=== PATIENT | female | born 1980 | race Caucasian/White ===

== ENCOUNTER 2018-03-17 20:00 | Emergency (ER) | payer BC, OTHER ==
[~2018-03-17] VITALS: Ht 157.5 cm; Wt 77.1 kg
[~2018-03-17 20:00] MED LIST: ALPR1TAB2 PO; CLON0.5T PO; DEXT30TA2 PO; LAMO25TA5 PO; OXCA150T3 PO; VENL37.5 PO
[2018-03-17 20:22] VITALS: BP 133/74
[2018-03-17] MEDS ORDERED: HYDROcodone/APAP 5/325MG 1 TAB TABLET ONE (20:28)
[2018-03-17] MEDS: HYDROcodone/APAP 5/325MG 1 TAB TABLET PO ONE (20:31)
[2018-03-17] MEDS ORDERED: HYDR-971 PO (20:57)
--- NOTE | 2018-03-17 21:19 | PHYS DOC ---
Past Medical History Past Medical History: Anxiety, Depression, Kidney Stone Additional Past Medical Histor: chronic back pain & frequent hx of patricia-rectal abscesses Past Surgical History: , Hysterectomy, Other Additional Past Surgical Histo: Perirectal abscess, L)salivary gland Alcohol Use: None Drug Use: None Adult General Chief Complaint Chief Complaint: WRIST PAIN HPI HPI Patient is a 37 year old female who presents with left wrist injury. The patient was walking HER-2 large dogs when she somehow lost control and was told into a fence. She primarily complains of left wrist pain which is where the dog' s leash was attached. She did not sustain any additional injuries. Incidentally , the patient is currently being followed for a 4 mm kidney stone and she does have hydrocodone at home for control of that problem. I, she is concerned only about her left wrist and wants to make sure there is no fracture. Review of Systems Review of Systems Constitutional: Denies fever or chills HENT: Denies nasal congestion Cardiovascular: No additional information not addressed in HPI Musculoskeletal: Denies back pain Integument: Denies rash or skin lesions All other systems were reviewed and found to be within normal limits, except as documented in this note. Current Medications Current Medications Current Medications Medications (Trade) Dose Ordered Sig/Chrystal Start Time Stop Time Status Last Admin Dose Admin Acetaminophen/ Hydrocodone Bitart (Lortab 5/325) 1 tab STK-MED ONCE 03/17/18 20:28 03/17/18 20:29 DC Allergies Allergies Allergies Coded Allergies Type Severity Reaction Last Updated Verified Penicillins Allergy Intermediate 05/12/13 Yes Iodinated Contrast Media - IV Dye Allergy Mild ITCHING 12/09/14 Yes Physical Exam Physical Exam Constitutional: Well developed, well nourished, no acute distress HENT: Normocephalic, atraumatic Neck: Normal range of motion Cardiovascular:Heart rate regular rhythm, no murmur Lungs & Thorax: Bilateral breath sounds clear to auscultation Skin: Warm, dry Back: No tenderness Extremities: minor ecchymosis and abrasion over the ulnar aspect of the left forearm. 2+ pulses distally, sensation to light touch intact over all dermatomes Neurologic: Alert and oriented X 3 Current Patient Data Vital Signs Vital Signs Date Time Temp Pulse Resp B/P (MAP) Pulse Ox O2 Delivery O2 Flow Rate FiO2 03/17/18 20:22 98.3 80 18 133/74 (93) 96 Room Air 98.3 EKG EKG [] Radiology/Procedures Radiology/Procedures No acute fx seen on left wrist xray Course & Med Decision Making Course & Med Decision Making Pertinent Labs and Imaging studies reviewed. (See chart for details) Patient is evaluated in the emergency department for left wrist injury. She did have some minor abrasions. She reports that her tetanus immunization was within the last 5 years. The x-ray did not reveal acute findings. She is placed in a splint for comfort. As mentioned above, the patient is followed for a kidney stone. She has 6 pain pills left at home. I did give her a prescription for additional pain medications to help both with her kidney stone and her wrist. The patient is not driving this evening. She is accompanied by a family member. She Brice has close follow-up scheduled regarding her kidney stone. Regarding her wrist, she is advised the usual precautions with rest, ice, elevation. Ibuprofen as first line pain control and [place] for more severe pain. All her questions are answered prior to discharge home. Dragon Disclaimer Dragon Disclaimer This electronic medical record was generated, in whole or in part, using a voice recognition dictation system. Departure Departure Impression: Primary Impression: Contusion of wrist, left Disposition: 01 HOME, SELF-CARE Condition: GOOD Patient Instructions: Contusion, [id number], Wrist Sprain with Rehab- [facility] Script[facility] Hydrocodone/Apap 5-325 (NORCO 5-325 TABLET) 1 Each Tablet 1-2 EACH PO PRN Q6HRS PRN for PAIN, #20 as needed for pain Prov: DIMITRIOS RDZ DO 03/17/18 DIMITRIOS RDZ DO Mar 17, 2018 21:19
--- NOTE | 2018-03-17 22:16 | RAD ---
History: Trauma, pain over distal ulna. Comparison: None. Findings: PA, lateral, and oblique views of the left wrist. No acute fracture or dislocation is identified. No focal soft tissue swelling is seen. Impression: No acute osseous traumatic injury identified. Electronically signed by: Frantz Christopher MD (03/17/2018 10:13 PM) [facility]
== END 2018-03-17 21:09 | disposition home or self-care (01) ==
LOC: ER 20:00
DX: S60.212A Contusion of left wrist, initial encounter (principal); S50.812A Abrasion of left forearm, initial encounter; F41.9 Anxiety disorder, unspecified; F32.9 Major depressive disorder, single episode, unspecified; N20.0 Calculus of kidney; G89.29 Other chronic pain; Z98.890 Other specified postprocedural states; Z90.710 Acquired absence of both cervix and uterus; Z88.0 Allergy status to penicillin; Z91.041 Radiographic dye allergy status; X58.XXXA Exposure to other specified factors, initial encounter; Y93.01 Activity, walking, marching and hiking; Y92.89 Other specified places as the place of occurrence of the external cause; Y99.8 Other external cause status
CPT/HCPCS: 29125; 73110; 99284

== ENCOUNTER 2018-08-19 13:34 | Emergency (ER) | payer BC ==
[~2018-08-19] VITALS: Ht 165.1 cm; Wt 74.8 kg
[~2018-08-19 13:34] MED LIST changes: +HYDR-3164 PO
[2018-08-19 13:47] VITALS: BP 131/81
--- NOTE | 2018-08-19 15:58 | PHYS DOC ---
Past Medical History Past Medical History: Anxiety, Depression, Kidney Stone Additional Past Medical Histor: chronic back pain & frequent hx of patricia-rectal abscesses Past Surgical History: , Hysterectomy, Other Additional Past Surgical Histo: Perirectal abscess, L)salivary gland Alcohol Use: None Drug Use: None Adult General Chief Complaint Chief Complaint: KNEE INJURY [facility] HPI Patient is a 37 year old female who presents with that on the stairs last week now has pain in her knee anterior-posterior that is a burning pain that radiates down to the dorsal foot. Patient states she can bear weight on it but she is limping. Patient rates her pain 8 out of 10. Patient states she took 800 mg ibuprofen this morning at 9:30. Review of Systems Review of Systems Constitutional: Denies fever or chills [] Eyes: Denies change in visual acuity, redness, or eye pain [] HENT: Denies nasal congestion or sore throat [] Respiratory: Denies cough or shortness of breath [] Cardiovascular: No additional information not addressed in HPI [] GI: Denies abdominal pain, nausea, vomiting, bloody stools or diarrhea [] : Denies dysuria or hematuria [] Musculoskeletal: Denies back pain. Left knee and foot joint pain [] Integument: Denies rash or skin lesions [] Neurologic: Denies headache, focal weakness or sensory changes [] Endocrine: Denies polyuria or polydipsia [] All other systems were reviewed and found to be within normal limits, except as documented in this note. Allergies Allergies Allergies Coded Allergies Type Severity Reaction Last Updated Verified Penicillins Allergy Intermediate 05/12/13 Yes Iodinated Contrast- Oral and IV Dye Allergy Mild ITCHING 12/09/14 Yes Physical Exam Physical Exam Constitutional: Well developed, well nourished, no acute distress, non-toxic appearance. [] HENT: Normocephalic, atraumatic, bilateral external ears normal, oropharynx moist, no oral exudates, nose normal. [] Eyes: PERRLA, EOMI, conjunctiva normal, no discharge. [] Neck: Normal range of motion, no tenderness, supple, no stridor. [] Cardiovascular:Heart rate regular rhythm, no murmur [] Lungs & Thorax: Bilateral breath sounds clear to auscultation [] Abdomen: Bowel sounds normal, soft, no tenderness, no masses, no pulsatile masses. [] Skin: Warm, dry, no erythema, no rash. [] Back: No tenderness, no CVA tenderness. [] Extremities: Left knee tenderness, no cyanosis, no clubbing, ROM intact, no edema. [] Neurologic: Alert and oriented X 3, normal motor function, normal sensory function, no focal deficits noted. [] Psychologic: Affect normal, judgement normal, mood normal. [] Current Patient Data Vital Signs Vital Signs Date Time Temp Pulse Resp B/P (MAP) Pulse Ox O2 Delivery O2 Flow Rate FiO2 08/19/18 13:47 97.7 84 14 131/81 (98) 99 Room Air 97.7 EKG EKG [] Radiology/Procedures Radiology/Procedures [] Course & Med Decision Making Course & Med Decision Making Patient is a 37 year old female who presents with that on the stairs last week now has pain in her left knee anterior-posterior that is a burning pain that radiates down to the dorsal foot. Patient states she can bear weight on it but she is limping. Patient rates her pain 8 out of 10. Patient states she took 800 mg ibuprofen this morning at 9:30. Alert and oriented. Ambulatory and drove her self to the ED. There is no swelling or bruising or deformity to the left leg or foot. Pedal pulses strong and present. Cap refill less than 3 seconds. Patient has tenderness to the anterior posterior knee with palpation. There is no laxity in the joint. Patient has intact range of motion of the knee and ankle and toes but is painful with range of motion in the knee. Patient left AMA stating she did not want to wait any longer. Dragon Disclaimer Dragon Disclaimer This electronic medical record was generated, in whole or in part, using a voice recognition dictation system. Departure Departure Impression: Primary Impression: Knee pain Disposition: 07 AGAINST MEDICAL ADVICE Condition: STABLE Referrals: CJ JUDD MD (PCP) Problem Qualifiers Primary Impression: Knee pain Chronicity: acute Laterality: left Qualified Codes: M25.562 - Pain in left knee ADELAIDE DOTSON [employer] Aug 19, 2018 15:58
== END 2018-08-19 15:20 | disposition left against medical advice (07) ==
LOC: ER 13:34
DX: M25.562 Pain in left knee (principal); F41.9 Anxiety disorder, unspecified; F32.9 Major depressive disorder, single episode, unspecified; G89.29 Other chronic pain; Z98.890 Other specified postprocedural states; Z90.710 Acquired absence of both cervix and uterus; Z87.442 Personal history of urinary calculi; Z88.0 Allergy status to penicillin; Z91.041 Radiographic dye allergy status
CPT/HCPCS: 99284

== ENCOUNTER → 2018-09-28 | Outpatient (CLI) | payer BC ==
[~2018-09-28] MED LIST changes: +PRED-220 PO
--- NOTE | 2018-09-28 14:44 | KCIC ---
Examination: MRI of the left knee without contrast HISTORY: History of left knee injury, fall COMPARISON: None available TECHNIQUE: Multiplanar, multisequence MR imaging of the left knee was performed without contrast FINDINGS: The anterior cruciate ligament, posterior cruciate ligament appear intact. The medial meniscus appears intact. There is minimal increased signal identified in the anterior and lateral meniscus, best seen on series 7 image #could be artifactual or subtle tear. The medial collateral ligament is intact. Lateral collateral ligamentous complex including the fibular collateral ligament, biceps femoris tendon, popliteus tendon appear intact The extensor mechanism is intact. Small knee joint effusion is identified . There is a deep fissuring of cartilage identified in the lateral patellofemoral femoral cartilage the medial retinaculum, lateral retinaculum appear intact. The extensor mechanism is intact. Mild joint space loss identified in the medial, lateral compartment femoral compartments IMPRESSION: 1. Minimal increased signal identified in the anterior and lateral meniscus, best seen on series 7 image #could be artifactual or subtle tear. 2. Grade II chondromalacia patella. 3. Small knee joint effusion. Electronically signed by: Gera Chery MD (09/28/2018 2:41 PM) [facility]
== END | disposition home or self-care (01) ==
LOC: KCIC MRI 13:31
PROVIDERS: ATTEND Registered Nurse
DX: M22.42 Chondromalacia patellae, left knee (principal); S89.92XA Unspecified injury of left lower leg, initial encounter; M25.462 Effusion, left knee; X58.XXXA Exposure to other specified factors, initial encounter; Y93.89 Activity, other specified; Y92.89 Other specified places as the place of occurrence of the external cause; Y99.8 Other external cause status
CPT/HCPCS: 73721

== ENCOUNTER 2018-11-22 19:04 | Emergency (ER) | payer BC ==
[~2018-11-22] VITALS: Ht 165.1 cm; Wt 72.6 kg
[~2018-11-22 19:04] MED LIST changes: -PRED-220 PO
[2018-11-22] MEDS ORDERED: diphenhydrAMINE 50 MG/ML VIAL IVP ONE (19:30)
[2018-11-22] MEDS ORDERED: methylPREDNISolone SOD SUCC PF 125 MG/2 ML VIAL. IV ONE (19:30)
[2018-11-22] MEDS ORDERED: PRED-220 PO (20:04)
[2018-11-22 20:11] VITALS: BP 120/76
--- NOTE | 2018-11-22 22:46 | PHYS DOC ---
Past Medical History Past Medical History: Anxiety, Depression, Kidney Stone Additional Past Medical Histor: chronic back pain & frequent hx of patricia-rectal abscesses Past Surgical History: , Hysterectomy, Other Additional Past Surgical Histo: Perirectal abscess, L)salivary gland Alcohol Use: None Drug Use: None Adult General Chief Complaint Chief Complaint: ALLERGIC REACTION HPI HPI Patient is a 38 year old [female presents with allergic reaction she does not recall specific new exposure. She has been under a lot of stress she is going through divorce. She took Benadryl and Zyrtec in the past and she took that again it did help her today. However the symptoms are persisting she felt that her voice was a little more so she came to the emergency room no shortness of breath Review of Systems Review of Systems Constitutional: Denies fever or chills [] Eyes: Denies change in visual acuity, redness, or eye pain [] HENT: Denies nasal congestion or sore throat [] Respiratory: Denies cough or shortness of breath [] Cardiovascular: No additional information not addressed in HPI [] GI: Denies abdominal pain, nausea, vomiting, bloody stools or diarrhea [] : Denies dysuria or hematuria [] Musculoskeletal: Denies back pain or joint pain [] All other systems were reviewed and found to be within normal limits, except as documented in this note. Current Medications Current Medications Current Medications Medications (Trade) Dose Ordered Sig/Chrystal Start Time Stop Time Status Last Admin Dose Admin Diphenhydramine HCl (Benadryl) 25 mg 1X ONCE 11/22/18 19:30 11/22/18 19:31 DC 11/22/18 19:35 25 MG Methylprednisolone Sodium Succinate (SOLU-Medrol 125MG VIAL) 125 mg 1X ONCE 11/22/18 19:30 11/22/18 19:31 DC 11/22/18 19:35 125 MG Allergies Allergies Allergies Coded Allergies Type Severity Reaction Last Updated Verified Penicillins Allergy Intermediate 05/12/13 Yes Iodinated Contrast- Oral and IV Dye Allergy Mild ITCHING 12/09/14 Yes Physical Exam Physical Exam Constitutional: Well developed, well nourished, no acute distress, non-toxic appearance. [] HENT: Normocephalic, atraumatic, bilateral external ears normal, oropharynx moist, no oral exudates, nose normal. [] Eyes: PERRLA, EOMI, conjunctiva normal, no discharge. [] Neck: Normal range of motion, no tenderness, supple, no stridor. [] Cardiovascular:Heart rate regular rhythm, no murmur [] Lungs & Thorax: Bilateral breath sounds clear to auscultation []oropharynx is clear there is no swelling of the oropharynx Abdomen: Bowel sounds normal, soft, no tenderness, no masses, no pulsatile masses. [] Skin: Urticaria noted on chin around lips and a little bit on the trunk Back: No tenderness, no CVA tenderness. [] Extremities: No tenderness, no cyanosis, no clubbing, ROM intact, no edema. [] Neurologic: Alert and oriented X 3, normal motor function, normal sensory function, no focal deficits noted. [] Psychologic: Affect normal, judgement normal, mood normal. [] Current Patient Data Vital Signs Vital Signs Date Time Temp Pulse Resp B/P (MAP) Pulse Ox O2 Delivery O2 Flow Rate FiO2 11/22/18 20:11 64 25 120/76 (91) 97 Room Air 11/22/18 19:10 98.0 98.0 EKG EKG [] Radiology/Procedures Radiology/Procedures [] Course & Med Decision Making Course & Med Decision Making Pertinent Labs and Imaging studies reviewed. (See chart for details) []Vitals are stable patient got Solu-Medrol and Benadryl IV and actually the hives improved a lot prescription for prednisone taper and return precautions discussed. Perhaps this is stress related urticaria Dragon Disclaimer Dragon Disclaimer This electronic medical record was generated, in whole or in part, using a voice recognition dictation system. Departure Departure Impression: Primary Impression: Urticaria Disposition: 01 HOME, SELF-CARE Condition: STABLE Patient Instructions: Hives, [id number] Scripts Prednisone (PREDNISONE ) 10 Mg Tablet 10 MG PO UD for PREDNISONE TAPER, #39 TAB 0 Refills Take 3 tablets by mouth twice a day for 3 days, then take 2 tablets by mouth twice a day for 3 days, then take 1 tablet by mouth twice a day for 3 days, then take 1 tablet by mouth daily x 3 days, then stop. Prov: JAIMIE FERMIN MD 11/22/18 JAIMIE FERMIN MD Nov 22, 2018 22:46
== END 2018-11-22 20:26 | disposition home or self-care (01) ==
LOC: ER 19:04
DX: L50.9 Urticaria, unspecified (principal); F41.9 Anxiety disorder, unspecified; F32.9 Major depressive disorder, single episode, unspecified; G89.29 Other chronic pain; Z87.442 Personal history of urinary calculi; Z98.890 Other specified postprocedural states; Z90.710 Acquired absence of both cervix and uterus; Z88.0 Allergy status to penicillin; Z91.041 Radiographic dye allergy status
CPT/HCPCS: 96374; 96375; 99284; J1200; J2930

== ENCOUNTER 2019-01-30 13:42 | Emergency (ER) | payer BC ==
[~2019-01-30] VITALS: Ht 165.1 cm; Wt 73.9 kg
[~2019-01-30 13:42] MED LIST changes: +PRED-220 PO
[2019-01-30] MEDS ORDERED: IV NORMAL SALINE 1000ML BAG 1,000 ML IV ONE (15:30)
[2019-01-30] MEDS ORDERED: fentaNYL PF VIAL 100 MCG/2 ML VIAL IV ONE (15:30)
[2019-01-30] MEDS ORDERED: METOCLOPRAMIDE HCL 10 MG/2 ML VIAL. IV ONE (15:30)
[2019-01-30 15:49] LABS: BILIRUBIN,URINE NEGATIVE (NEG); CLARITY,URINE CLEAR; COLOR,URINE YELLOW; NITRITE,URINE NEGATIVE (NEG); PH,URINE 6.5; PROTEIN,URINE NEGATIVE (NEG-TRACE); UROBILINOGEN,URINE 0.2 mg/dL (0.2 mg/dL)
[2019-01-30 15:55] LABS: BACTERIA,URINE MODERATE /HPF (0-FEW)
--- NOTE | 2019-01-30 15:56 | PHYS DOC ---
Past Medical History Past Medical History: Anxiety, Depression, Kidney Stone Additional Past Medical Histor: chronic back pain & frequent hx of patricia-rectal abscesses Past Surgical History: , Hysterectomy, Other Additional Past Surgical Histo: Perirectal abscess, L)salivary gland Alcohol Use: None Drug Use: None Adult General Chief Complaint Chief Complaint: ABDOMINAL PAIN HPI HPI Patient is a 38 year old [female] who presents with [RUQ abdominal pain. States pain started earlier today, has been constant. Reports it started after she had eaten something. Reports she has had a history of prior kidney stones, does not believe this feels the same, as she does not usually have the pain under her ribs. States she has felt a little bit nauseous come denies any vomiting, denies any diarrhea.] Review of Systems Review of Systems Constitutional: Denies fever or chills [] Eyes: Denies change in visual acuity, redness, or eye pain [] HENT: Denies nasal congestion or sore throat [] Respiratory: Denies cough or shortness of breath [] Cardiovascular: No additional information not addressed in HPI [] GI: Reports upper right quadrant abdominal pain, reports nausea denies vomiting denies diarrhea denies change in stools[] : Denies dysuria or hematuria [] Musculoskeletal: Denies back pain or joint pain [] Integument: Denies rash or skin lesions [] Neurologic: Denies headache, focal weakness or sensory changes [] Endocrine: Denies polyuria or polydipsia [] All other systems were reviewed and found to be within normal limits, except as documented in this note. Current Medications Current Medications Current Medications Medications (Trade) Dose Ordered Sig/Chrystal Start Time Stop Time Status Last Admin Dose Admin Fentanyl Citrate (Fentanyl 2ml Vial) 50 mcg 1X ONCE 01/30/19 15:30 01/30/19 15:36 DC 01/30/19 16:13 50 MCG Metoclopramide HCl (Reglan Vial) 10 mg 1X ONCE 01/30/19 15:30 01/30/19 15:36 DC 01/30/19 16:13 10 MG Sodium Chloride 1,000 ml @ 1,000 mls/hr 1X ONCE 01/30/19 15:30 01/30/19 16:29 DC 01/30/19 16:13 1,000 MLS/HR Allergies Allergies Allergies Coded Allergies Type Severity Reaction Last Updated Verified Penicillins Allergy Intermediate 05/12/13 Yes Iodinated Contrast Media Allergy Mild ITCHING 12/09/14 Yes Physical Exam Physical Exam Constitutional: Well developed, well nourished, no acute distress, non-toxic appearance. [] HENT: Normocephalic, atraumatic, bilateral external ears normal, oropharynx moist, no oral exudates, nose normal. [] Eyes: PERRLA, EOMI, conjunctiva normal, no discharge. [] Neck: Normal range of motion, no tenderness, supple, no stridor. [] Cardiovascular:Heart rate regular rhythm, no murmur [] Lungs & Thorax: Bilateral breath sounds clear to auscultation [] Abdomen: Bowel sounds normal, soft, no tenderness, no masses, no pulsatile masses. [] Skin: Warm, dry, no erythema, no rash. [] Back: No tenderness, no CVA tenderness. [] Extremities: No tenderness, no cyanosis, no clubbing, ROM intact, no edema. [] Neurologic: Alert and oriented X 3, normal motor function, normal sensory function, no focal deficits noted. [] Psychologic: Affect normal, judgement normal, mood normal. [] Current Patient Data Vital Signs Vital Signs Date Time Temp Pulse Resp B/P (MAP) Pulse Ox O2 Delivery O2 Flow Rate FiO2 01/30/19 14:10 98.1 72 18 105/71 (82) 95 Room Air 98.1 Lab Values Laboratory Tests Test 01/30/19 14:03 01/30/19 14:09 01/30/19 15:58 Urine Collection Type Unknown Urine Color Yellow Urine Clarity Clear Urine pH 6.5 Urine Specific [place] <=1.005 Urine Protein Negative mg/dL (NEG-TRACE) Urine Glucose (UA) Negative mg/dL (NEG) Urine Ketones (Stick) Negative mg/dL (NEG) Urine Blood Negative (NEG) Urine Nitrite Negative (NEG) Urine Bilirubin Negative (NEG) Urine Urobilinogen Dipstick 0.2 mg/dL (0.2 mg/dL) Urine Leukocyte Esterase Negative (NEG) Urine RBC 1-2 /HPF (0-2) Urine WBC 1-4 /HPF (0-4) Urine Bacteria Moderate /HPF (0-FEW) POC Urine HCG, Qualitative Hcg negative (Negative) White Blood Count 8.0 x10^3/uL (4.0-11.0) Red Blood Count 4.57 x10^6/uL (3.50-5.40) Hemoglobin 15.2 g/dL (12.0-15.5) Hematocrit 43.2 % (36.0-47.0) Mean Corpuscular Volume 95 fL (79-100) Mean Corpuscular Hemoglobin 33 pg (25-35) Mean Corpuscular Hemoglobin Concent 35 g/dL (31-37) Red Cell Distribution Width 12.9 % (11.5-14.5) Platelet Count 193 x10^3/uL (140-400) Neutrophils (%) (Auto) 52 % (31-73) Lymphocytes (%) (Auto) 37 % (24-48) Monocytes (%) (Auto) 6 % (0-9) Eosinophils (%) (Auto) 5 % (0-3) H Basophils (%) (Auto) 1 % (0-3) Neutrophils # (Auto) 4.1 x10^3/uL (1.8-7.7) Lymphocytes # (Auto) 3.0 x10^3/uL (1.0-4.8) Monocytes # (Auto) 0.4 x10^3/uL (0.0-1.1) Eosinophils # (Auto) 0.4 x10^3/uL (0.0-0.7) Basophils # (Auto) 0.1 x10^3/uL (0.0-0.2) Sodium Level 143 mmol/L (136-145) Potassium Level 3.5 mmol/L (3.5-5.1) Chloride Level 104 mmol/L (98-107) Carbon Dioxide Level 32 mmol/L (21-32) Anion Gap 7 (6-14) Blood Urea Nitrogen 5 mg/dL (7-20) L Creatinine 0.9 mg/dL (0.6-1.0) Estimated GFR (Cockcroft-Gault) 70.1 BUN/Creatinine Ratio 6 (6-20) Glucose Level 93 mg/dL (70-99) Calcium Level 9.5 mg/dL (8.5-10.1) Total Bilirubin 0.4 mg/dL (0.2-1.0) Aspartate Amino Transferase (AST) 20 U/L (15-37) Alanine Aminotransferase (ALT) 26 U/L (14-59) Alkaline Phosphatase 102 U/L (46-116) Total Protein 7.6 g/dL (6.4-8.2) Albumin 3.9 g/dL (3.4-5.0) Albumin/Globulin Ratio 1.1 (1.0-1.7) Amylase Level 42 U/L (25-115) Lipase 91 U/L (73-393) Laboratory Tests 01/30/19 15:58 Laboratory Tests 01/30/19 15:58 EKG EKG [] Radiology/Procedures Radiology/Procedures Non obstructive left renal calculus 1.7 mm[] Course & Med Decision Making Course & Med Decision Making Pertinent Labs and Imaging studies reviewed. (See chart for details) [Discussed this with patient, patient reports she has had several kidney stones in the past. Reports she will follow-up primary care provider states she is feeling better and is still 3 to go home at this time.] Dragon Disclaimer Dragon Disclaimer This electronic medical record was generated, in whole or in part, using a voice recognition dictation system. Departure Departure Impression: Primary Impression: Renal calculus Disposition: 01 HOME, SELF-CARE Condition: GOOD Referrals: CJ JUDD MD (PCP) Patient Instructions: Kidney Stones Additional Instructions: As we discussed, make sure you're drinking plenty of fluids. Water's best. Take Tylenol or ibuprofen for discomfort. Follow-up with her primary care provider as needed AUGUSTO RYDER APRN Jan 30, 2019 15:56
[2019-01-30 16:14] LABS: BASO # 0.1 x10^3/uL (0.0-0.2); BASO % 1 % (0-3); EOS # 0.4 x10^3/uL (0.0-0.7); EOS % 5 % (0-3); HEMATOCRIT 43.2 % (36.0-47.0); HEMOGLOBIN 15.2 g/dL (12.0-15.5); LYMPH % 37 % (24-48); MEAN CORPUSCULAR HEMOGLOBIN 33 pg (25-35); MEAN CORPUSCULAR HGB CONC 35 g/dL (31-37); MEAN CORPUSCULAR VOLUME 95 fL (79-100); MONO # 0.4 x10^3/uL (0.0-1.1); MONO % 6 % (0-9); NEUT # 4.1 x10^3/uL (1.8-7.7); NEUT % 52 % (31-73); PLATELET COUNT 193 x10^3/uL (140-400); RED BLOOD COUNT 4.57 x10^6/uL (3.50-5.40); RED CELL DISTRIBUTION WIDTH 12.9 % (11.5-14.5)
[2019-01-30 16:21] LABS: CALCIUM 9.5 mg/dL (8.5-10.1); CREATININE 0.9 mg/dL (0.6-1.0); GFR 70.1; POTASSIUM 3.5 mmol/L (3.5-5.1)
[2019-01-30 16:28] LABS: ALBUMIN 3.9 g/dL (3.4-5.0); ALBUMIN/GLOBULIN RATIO 1.1 (1.0-1.7); TOTAL BILIRUBIN 0.4 mg/dL (0.2-1.0); TOTAL PROTEIN 7.6 g/dL (6.4-8.2)
--- NOTE | 2019-01-30 17:40 | RAD ---
Examination: CT ABDOMEN PELVIS WO CONTRAST History: Right upper quadrant pain Comparison/Correlation: None Findings: Axial images of the abdomen and pelvis were obtained without contrast. Sagittal and coronal reformatted images were provided. Visualized lung bases are unremarkable. Unenhanced liver, spleen, pancreas, and adrenal glands are normal. Gallbladder fossa is unremarkable. Right renal posterior interpolar cyst is present measuring up to 1.7 cm diameter. No radiopaque right collecting system calculus. Left renal superior pole punctate calyceal calculus measuring 0.4 cm diameter is present. No left collecting system obstruction. Urinary bladder is unremarkable. No extraluminal gas. No bowel obstruction. Appendix normal. Diverticulosis of the colon is present. No extraluminal gas. No bowel obstruction. No ascites or pelvic free fluid. Bony structures are unremarkable Impression: Nonobstructive left renal calculus. Diverticulosis. No acute process. PQRS Compliance Statement: One or more of the following individualized dose reduction techniques were utilized for this examination: 1. Automated exposure control 2. Adjustment of the mA and/or kV according to patient size 3. Use of iterative reconstruction technique Electronically signed by: Bob Mckeon MD (01/30/2019 5:38 PM) [facility]
[2019-01-30 17:41] VITALS: BP 109/53
== END 2019-01-30 18:05 | disposition home or self-care (01) ==
LOC: ER 13:42
DX: N20.0 Calculus of kidney (principal); F41.9 Anxiety disorder, unspecified; F32.9 Major depressive disorder, single episode, unspecified; G89.29 Other chronic pain; Z98.890 Other specified postprocedural states; Z90.710 Acquired absence of both cervix and uterus; Z88.0 Allergy status to penicillin; Z91.041 Radiographic dye allergy status
CPT/HCPCS: 36415; 74176; 80053; 81001; 81025; 82150; 83690; 85025; 87086; 96374; 96375; 99285; J2765; J3010; J7030

== ENCOUNTER → 2019-06-17 | Outpatient (CLI) | payer BC ==
--- NOTE | 2019-06-17 15:52 | KCIC ---
MR of the left knee HISTORY: Left knee pain. Injury several weeks ago after a fall. Pain posterior. TECHNIQUE: Routine multiplanar sequences are obtained. FINDINGS: No evidence of medial meniscal tear. Signal within the anterior horn of the lateral meniscus overall similar to the prior study and again suspicious for an anterior horn tear. The posterior horn is intact. Anterior and posterior cruciate ligaments are intact. Medial collateral ligament is intact. Iliotibial band unremarkable. Fibular collateral ligament, biceps femoris tendon and popliteus tendon are intact. The extensor mechanism is intact. Small joint effusion. Moderate chondromalacia of the lateral patellar facet appears stable since the prior study. No evidence of acute medial or lateral compartment articular cartilage defect. No acute fracture. No aggressive bone destruction. No significant Celaya's cyst. IMPRESSION: 1. Signal within the anterior horn lateral meniscus is unchanged, again suspicious for a tear.. 2. Chondromalacia at the patella, stable. Electronically signed by: Frantz Del Cid MD (06/17/2019 3:49 PM) [id number]
== END | disposition home or self-care (01) ==
LOC: KCIC MRI 14:39
PROVIDERS: ATTEND Family Medicine
DX: M22.42 Chondromalacia patellae, left knee (principal); M25.462 Effusion, left knee
CPT/HCPCS: 73721

== ENCOUNTER 2019-07-28 20:22 | Emergency (ER) | payer BC ==
[~2019-07-28] VITALS: Ht 165.1 cm; Wt 80.0 kg
[2019-07-28 20:35] VITALS: BP 110/76
== END 2019-07-28 20:58 | disposition left against medical advice (07) ==
LOC: ER 20:22
DX: R00.2 Palpitations (principal); Z53.21 Procedure and treatment not carried out due to patient leaving prior to being seen by health care provider

== ENCOUNTER → 2020-01-07 | Outpatient (CLI) | payer BC ==
--- NOTE | 2020-01-07 15:57 | KCIC ---
EXAM: MRI left shoulder DATE: 01/07/2020 12:00 AM COMPARISON: None INDICATION: Acute left shoulder pain after pulling injury 2 weeks ago TECHNIQUE: Multiplanar, multisequence MRI of the left shoulder was performed without contrast. FINDINGS: AC joint degenerative changes are seen. Mild lateral downsloping of the distal acromion. Type II acromion. No os acromiale. Subacromial-subdeltoid bursal edema likely bursitis. There is moderate increased signal within the supraspinatus and infraspinatus tendons with associated cystic change in the glenoid. Partial-thickness articular sided tear of the supraspinatus tendon is seen measuring approximately 5 mm in AP dimension, involving about 50 percent tendon thickness. No discrete full-thickness rotator cuff tear is identified. Rotator cuff muscle signal and bulk is normal. No fatty atrophy. No discrete labral tear is seen. Intra-articular and extra articular long head biceps tendon are intact, normal in signal and morphology. T1 marrow signal is preserved. No fracture or osteonecrosis. Articular cartilage is grossly preserved. IMPRESSION: Partial-thickness articular sided tear of the supraspinatus measuring approximately 5 mm in AP dimension. Associated cystic change within the anterior glenoid. Background of moderate supraspinatus and infraspinatus tendinosis. Subacromial-subdeltoid bursal edema likely bursitis. Electronically signed by: Asad White MD (01/07/2020 3:54 PM) KRISTIN
== END ==
LOC: KCIC MRI 12:32
PROVIDERS: ATTEND Family Medicine
DX: M75.112 Incomplete rotator cuff tear or rupture of left shoulder, not specified as traumatic (principal)
CPT/HCPCS: 73221

== ENCOUNTER → 2020-03-23 | Outpatient (CLI) | payer MEDICAID ==
--- NOTE | 2020-03-23 14:22 | KCIC ---
EXAMINATION: KNEE BILAT 3V CLINICAL HISTORY: DJD of both joints. Bilateral, chronic knee pain. L>R. Swelling in left knee. TECHNIQUE: KNEE BILAT 3V Number of Images/Views: 3 each COMPARISON: Right knee radiographs 07/13/2018 FINDINGS: Joint spaces and alignment maintained. No acute fracture. No joint effusion. IMPRESSION: Unremarkable exam bilateral knees. Electronically signed by: Abel Ahuja DO (03/23/2020 2:19 PM) [id number]
== END ==
LOC: KCIC 13:04
PROVIDERS: ATTEND Physical Medicine & Rehabilitation
DX: M17.0 Bilateral primary osteoarthritis of knee (principal)
CPT/HCPCS: 73562

== ENCOUNTER → 2020-07-20 | Outpatient (CLI) | payer MEDICAID ==
--- NOTE | 2020-07-21 08:59 | KCIC ---
EXAMINATION: MRI LEFT SHOULDER WITHOUT IV CONTRAST CLINICAL HISTORY: Left shoulder pain and LROM following fall TECHNIQUE: Multiplanar multisequential images obtained through the shoulder without intravenous contr ast. COMPARISON: MRI left shoulder 01/07/2020, left shoulder radiographs 12/16/2019 FINDINGS: Extensive motion artifact on coronal T2 fat saturated sequences limits evaluation. TENDONS: - Supraspinatus: High-grade partial-thickness articular sided tear in the posterior half of the tendo n and associated tendinosis. - Infraspinatus: Moderate to marked tendinosis without discrete tear, similar to prior study. - Subscapularis: Within normal limits. - Teres Minor: Within normal limits. - Biceps Tendon: The long head biceps tendon is intact and appropriately located. MUSCLES: Muscle bulk and signal intensity are within normal limits. LABRUM: No definite labral tear on limited evaluation. GLENOHUMERAL JOINT: - Joint Fluid: No significant joint effusion or synovitis. - Cartilage: Within normal limits. ACROMIOCLAVICULAR JOINT: Within normal limits. BONES/MARROW: No evidence of acute fracture or suspicious marrow replacing process. Chronic reactive changes in the greater tuberosity. OTHER: Mild thickening and increased fluid distention of the subacromial/subdeltoid bursa, compatible with bursitis in the appropriate clinical setting. IMPRESSION: High-grade partial-thickness supraspinatus tendon tear and rotator cuff tendinosis as described. No f ull-thickness rotator cuff tear visualized on somewhat limited evaluation. Electronically signed by: Abel Ahuaj DO (07/21/2020 8:56 AM) [id number]
== END ==
LOC: KCIC MRI 14:46
PROVIDERS: ATTEND Family Medicine
DX: S46.012A Strain of muscle(s) and tendon(s) of the rotator cuff of left shoulder, initial encounter (principal); W19.XXXA Unspecified fall, initial encounter; Y93.89 Activity, other specified; Y92.89 Other specified places as the place of occurrence of the external cause; Y99.8 Other external cause status
CPT/HCPCS: 73221

== ENCOUNTER 2021-01-15 13:00 | Emergency (ER) | payer MEDICAID | END 2021-01-15 13:34 | disposition left against medical advice (07) | LOC: ER 13:00 | DX: L98.8 Other specified disorders of the skin and subcutaneous tissue (principal); Z53.21 Procedure and treatment not carried out due to patient leaving prior to being seen by health care provider ==